=== PATIENT | male | born 1935 | race Caucasian/White ===

== ENCOUNTER → 2016-10-30 | Outpatient (CLI) | payer OTHER ==
[~2016-10-30] MED LIST: IOPAMIDOL (ISOVUE 370) 100 ML BTL IV ONE
== END ==
LOC: FIMAGING 14:08
PROVIDERS: ATTEND Psychiatry & Neurology Neurology
DX: R42 Dizziness and giddiness (principal); I25.10 Atherosclerotic heart disease of native coronary artery without angina pectoris; I77.1 Stricture of artery; M50.31 Other cervical disc degeneration, high cervical region; M43.12 Spondylolisthesis, cervical region; M48.02 Spinal stenosis, cervical region
CPT/HCPCS: 70498; Q9967

== ENCOUNTER 2018-11-29 17:14 | Observation (INO) | payer OTHER ==
[2018-11-29] MEDS ORDERED: NS 500 ML IV ONE (17:44)
--- NOTE | 2018-11-29 17:52 | EDPHY ---
H & P Time Seen by Provider: 11/29/18 17:25 HPI/ROS: CHIEF COMPLAINT: Dizziness, weakness, confusion HISTORY OF PRESENT ILLNESS: Patient is an 83-year-old male with a history of Parkinson's disease, hypertension atrial fibrillation who presents emergency department with increased dizziness and confusion. Patient's school bus inspector states that he has been losing weight over the past 6 months. Over the past few days he had decreased intake until today when he took a large amount of water. She states that this was atypical. He also seems more confused than normal. He has had increasing dizziness and difficulty walking. The patient had MOHS surgery last Wednesday. They noticed some redness around his ear and he was seen by the calculus tutor on Wednesday. He was not started on antibiotics. They were told that this was inflammation and he was given Advil. Patient's wound is not worsening. It remains unchanged. No fever. No chills. REVIEW OF SYSTEMS: 10 systems were reveiwed and are negative with the exception of the elements mentioned in the history of present illness. Past Medical/Surgical History: Includes Parkinson's disease, hypertension, atrial fibrillation, SVT, squamous cell carcinoma PSH: Hernia repair, MOHS Smoking Status: Never smoked Physical Exam: 36.4, 132/90, 58, 18, 97% on room air GENERAL: No acute distress, alert. HEENT: Eyes normal to inspection, normal pharynx, no signs of dehydration. Right ear wound it has surrounding redness. It appears to be granulating well. There is no significant erythema. NECK: Normal, supple. No neck redness RESPIRATORY: Clear to auscultation bilaterally, no rales, rhonchi or wheezing. CVS: Regular rate and rhythm, no rubs, murmurs, or gallops. ABDOMEN: Soft, nontender, nondistended, no organomegaly. BACK: Normal to inspection, no CVA tenderness. SKIN: Normal color, no rash, warm, dry. No pallor. EXTREMITIES: No pedal edema, no calf tenderness, no Homans sign or cords, no joint swelling. NEURO/PSYCH: Alert and oriented, flat affect, moves all extremities. No obvious cranial nerve deficit. Constitutional: Initial Vital Signs Temperature (C) 36.4 C 11/29/18 17:20 Heart Rate 58 L 11/29/18 17:20 Respiratory Rate 18 11/29/18 17:20 Blood Pressure 132/90 H 11/29/18 17:20 O2 Sat (%) 97 11/29/18 17:20 O2 Delivery Mode Room Air Allergies/Adverse Reactions: No Allergies [NKA] Allergy (Verified 11/29/18 17:18) Home Medications: Medication Instructions Recorded Ascorbic Acid [Vitamin C 500 mg 500 mg PO DAILY 04/09/15 (*)] Cholecalciferol Vit D3 [Vitamin D3 5,000 units PO HS 04/09/15 (*)] Herbals/Supplements -Info Only 1 ea PO DAILY 04/09/15 Lisinopril [Zestril 20 mg (*)] 20 mg PO DAILY 04/09/15 [place]-3 Fatty Acids [Fish Oil 1000 1,000 mg PO BID 04/09/15 mg (*)] Acetaminophen [Tylenol 325mg (*)] 325 - 650 mg PO Q4 PRN #0 tab 06/11/15 CARBIDOPA-LEVODOPA 10-100 TAB 11/29/18 Exelon 11/29/18 Medical Decision Making - Diagnostics Imaging Results: Imaging Impressions Chest X-Ray 11/29/18 17:44 Impression: Clear lungs. No acute process or significant change since November 2015. Head CT 11/29/18 19:03 Impression: 1. Negative. No acute intracranial hemorrhage or evidence of acute ischemia. 2. Atrophy and white matter disease similar to 2016. Findings discussed with Emergency Department physician, Suzanne Brenner M.D. , on November 29, 2018 at 1938. ED Course/Re-evaluation: In the emergency department I discussed possible etiologies with the patient. An IV was placed. Laboratory studies, EKG and chest x-ray were ordered. Patient given normal saline 5 mL IV. EKG from urgent care shows sinus rhythm at 53. Prolonged AK. Right bundle branch block CBC is unremarkable. Troponin negative. Chemistry and other labs are pending EKG: Sinus rhythm at 50. Prolonged AK. Right bundle branch block. Q-wave in V1. Chemistry panel is only remarkable for an elevated BUN. Coags are normal. UA is positive for red cells and white cells. Positive ketones I discussed the case with the patient's [id number], Jo-Ann Enriquez. I discussed the findings. I answered all her questions. Patient has concern about the patient being home. He does live at home alone. The patient will be admitted for further evaluation and treatment. He was given Rocephin 1 g IV for possible urinary tract infection. Urine cultures were sent. Differential Diagnosis: My differential includes but is not limited to electrolyte abnormality, sugar abnormality, CVA, Dissection, aneurysm, urinary tract infection, pneumonia, ACS , acute [place], dysrhythmia - Data Points Laboratory Results: Laboratory Results 11/29/18 18:03 11/29/18 18:03 11/29/18 11/29/18 11/29/18 19:30 18:03 18:03 WBC RBC Hgb Hct MCV MCH MCHC RDW Plt Count MPV Neut % (Auto) Lymph % (Auto) [place] % (Auto) Eos % (Auto) Baso % (Auto) Nucleat RBC Rel Count Absolute Neuts (auto) Absolute Lymphs (auto) Absolute Monos (auto) Absolute Eos (auto) Absolute Basos (auto) Absolute Nucleated RBC Immature Gran % Immature Gran # PT 13.2 SEC SEC (12.0-15.0) INR 1.04 (0.83-1.16) APTT 32.9 SEC SEC (23.0-38.0) Sodium 139 mEq/L mEq/L (135-145) Potassium 3.8 mEq/L mEq/L (3.5-5.2) Chloride 99 mEq/L mEq/L (97-110) Carbon Dioxide 29 mEq/l mEq/l (22-31) Anion Gap 11 mEq/L mEq/L (6-14) BUN 42 mg/dL H mg/dL (7-23) Creatinine 1.1 mg/dL mg/dL (0.7-1.3) Estimated GFR > 60 Glucose 92 mg/dL mg/dL (70-100) Calcium 9.9 mg/dL mg/dL (8.5-10.4) Urine Color ESTRELLITA Urine Appearance MODERATELY TURBID Urine pH 5.0 (5.0-7.5) Ur Specific [place] 1.023 (1.002-1.030) Urine Protein NEGATIVE (NEGATIVE) Urine Ketones 1+ H (NEGATIVE) Urine Blood NEGATIVE (NEGATIVE) Urine Nitrate NEGATIVE (NEGATIVE) Urine Bilirubin NEGATIVE (NEGATIVE) Urine Urobilinogen NEGATIVE EU EU (0.2-1.0) Ur Leukocyte Esterase NEGATIVE (NEGATIVE) Urine RBC 50-182 /hpf H /hpf (0-3) Urine WBC 10-15 /hpf H /hpf (0-3) Ur Epithelial Cells TRACE /lpf /lpf (NONE-1+) Calcium Oxalate Crystal PRESENT /hpf /hpf (NONE-1+) Hyaline Casts 1-5 /lpf /lpf (0-1) Urine Mucus 1+ /lpf /lpf (NONE-1+) Urine Glucose NEGATIVE (NEGATIVE) 11/29/18 18:03 WBC 5.35 10^3/uL 10^3/uL (3.80-9.50) RBC 4.46 10^6/uL 10^6/uL (4.40-6.38) Hgb 14.6 g/dL g/dL (13.7-17.5) Hct 42.2 % % (40.0-51.0) MCV 94.6 fL fL (81.5-99.8) MCH 32.7 pg pg (27.9-34.1) MCHC 34.6 g/dL g/dL (32.4-36.7) RDW 12.1 % % (11.5-15.2) Plt Count 177 10^3/uL 10^3/uL (150-400) MPV 10.4 fL fL (8.7-11.7) Neut % (Auto) 65.4 % % (39.3-74.2) Lymph % (Auto) 26.2 % % (15.0-45.0) [place] % (Auto) 5.4 % % (4.5-13.0) Eos % (Auto) 1.7 % % (0.6-7.6) Baso % (Auto) 0.9 % % (0.3-1.7) Nucleat RBC Rel Count 0.0 % % (0.0-0.2) Absolute Neuts (auto) 3.50 10^3/uL 10^3/uL (1.70-6.50) Absolute Lymphs (auto) 1.40 10^3/uL 10^3/uL (1.00-3.00) Absolute Monos (auto) 0.29 10^3/uL L 10^3/uL (0.30-0.80) Absolute Eos (auto) 0.09 10^3/uL 10^3/uL (0.03-0.40) Absolute Basos (auto) 0.05 10^3/uL 10^3/uL (0.02-0.10) Absolute Nucleated RBC 0.00 10^3/uL 10^3/uL (0-0.01) Immature Gran % 0.4 % % (0.0-1.1) Immature Gran # 0.02 10^3/uL 10^3/uL (0.00-0.10) PT INR APTT Sodium Potassium Chloride Carbon Dioxide Anion Gap BUN Creatinine Estimated GFR Glucose Calcium Urine Color Urine Appearance Urine pH Ur Specific [place] Urine Protein Urine Ketones Urine Blood Urine Nitrate Urine Bilirubin Urine Urobilinogen Ur Leukocyte Esterase Urine RBC Urine WBC Ur Epithelial Cells Calcium Oxalate Crystal Hyaline Casts Urine Mucus Urine Glucose Medications Given: Discontinued Medications Sodium Chloride (Ns) 500 mls @ 1,000 mls/hr IV EDNOW ONE PRN Reason: Protocol Stop: 11/29/18 18:13 Last Admin: 11/29/18 18:29 Dose: 500 mls Departure - Departure Disposition: [facility] Clinical Impression: Dizziness, Weakness, Parkinsons disease Urinary tract infection Qualifiers: Urinary tract infection type: acute cystitis Hematuria presence: with hematuria Qualified Code(s): N30.01 - Acute cystitis with hematuria Condition: Good Referrals: Niesha Logan MD [Primary Care Provider] - As per Instructions
[2018-11-29 18:16] LABS: PLATELET COUNT 177 10^3/uL (150-400)
[2018-11-29 18:26] LABS: INR 1.04 (0.83-1.16); PROTIME(PATIENT) 13.2 SEC (12.0-15.0)
[2018-11-29] MEDS ORDERED: ACETAMINOPHEN 325 MG TAB PO PRN (21:01)
[2018-11-29] MEDS ORDERED: ONDANSETRON DISINTEGRATING 4 MG TAB PO PRN (21:01)
[2018-11-29] MEDS ORDERED: ONDANSETRON 4 MG/2 ML VIAL IVP PRN (21:01)
[2018-11-29] MEDS ORDERED: RIVASTIGMINE TARTRATE 1.5 MG CAP PO ONE (21:15)
[2018-11-29] MEDS ORDERED: CARBIDOPA/LEVODOPA 25 MG/100 MG TAB PO ONE (21:15)
--- NOTE | 2018-11-29 21:33 | PDGENHP ---
History and Physical - Chief Complaint dizziness, confusion - History of Present Illness 83yo M with Parkinson's, dementia, atrial tachycardia s/p ablation, MV repair with mild-moderate MS presents with 1 day of dizziness and confusion. He is a poor historian and not able to provide much history. His colorman, Tierney, is at bedside. She reports he has been having decreased PO intake over the last week. Today he was complaining of lots of dizziness in the morning. He did not pass out. He doesn't think it was a room spinning sensation. It does seem to be positional. She also felt that he was confused and complaining of being very thirsty today. He has not had any recent changes in medications. Denies recent fevers, chills, nausea/vomiting, diarrhea, or urinary symptoms. No palpitations or chest pain. In the ED, he had rather unremarkable vitals and labs. A UA was positive for some WBCs and RBCs. He was given a dose of IV ceftriaxone and 500ml of normal saline. It was felt that he was unsafe to go home as he lives alone. The ED provider discussed the case with his daughter who is his MDPOA. History Information - Allergies/Home Medication List Allergies/Adverse Reactions: No Allergies [NKA] Allergy (Verified 11/29/18 17:18) Home Medications: Ascorbic Acid [Vitamin C 500 mg (*)] 500 mg PO DAILY 04/09/15 [Last Taken ] Cholecalciferol Vit D3 [Vitamin D3 (*)] 2,000 units PO DAILY 04/09/15 [Last Taken 11/29/18] Herbals/Supplements -Info Only 1 ea PO DAILY 04/09/15 [Last Taken Unknown] Lisinopril [Zestril 20 mg (*)] 20 mg PO DAILY 04/09/15 [Last Taken 11/29/18] [place]-3 Fatty Acids [Fish Oil 1000 mg (*)] 1,000 mg PO DAILY 04/09/15 [Last Taken 11/29/18] Carbidopa/Levodopa [Carbidopa-Levodopa 25-100 Tab] 1 each PO TID@09,12,18 [Last Taken 11/29/18 12:00] Ibuprofen 200 mg PO Q8H 11/29/18 [Last Taken 11/29/18] Rivastigmine Tartrate [Rivastigmine] 3 mg PO BID 11/29/18 [Last Taken 11/29/18] Triamcinolone 0.1% [Triamcinolone 0.1% Cream (*)] 1 tessa TP DAILY 11/29/18 [Last Taken 11/28/18] I have personally reviewed and updated: family history, medical history, social history, surgical history - Past Medical History Additional medical history: Parkinson's disease with underlying dementia, hypertension, MV repair, mild-moderate MS, atrial tachycardia s/p ablation, chronic dysequilibrium - Surgical History Additional surgical history: MV repair - Family History Positive for: non-pertinent - Social History Smoking Status: Never smoked Alcohol Use: None Drug Use: None Additional social history: Lives alone. Caretake, Tierney, checks in on him daily. Goes to outpatient PT. No longer drives, needs help with iADLs. Ambulates on own. Review of Systems Review of Systems: ROS: 10pt was reviewed & negative except for what was stated in HPI & below Physical Exam Physical Exam: Temp Pulse Resp BP Pulse Ox 36.4 C 61 17 138/88 H 98 11/29/18 17:20 11/29/18 20:11 11/29/18 20:11 11/29/18 20:11 11/29/18 20:11 Constitutional: no apparent distress Eyes: PERRL, anicteric sclera Ears, Nose, Mouth, Throat: no oral mucosal ulcers, dry mucous membranes Cardiovascular: regular rate and rhythym, systolic murmur, No JVD, No edema Respiratory: no respiratory distress, no rales or rhonchi, clear to auscultation Gastrointestinal: normoactive bowel sounds, soft, non-tender abdomen, no palpable masses Genitourinary: no bladder fullness, no bladder tenderness Skin: warm, normal color, no rashes or abrasions, no fluctuance, no induration, No mottled Musculoskeletal: generalized weakness Neurologic: CN II-XII Intact, other (alert, not fully oriented) Psychiatric: encephalopathic Lab Data & Imaging Review 11/29/18 18:03 11/29/18 18:03 WBC 5.35 10^3/uL (3.80-9.50) 11/29/18 18:03 RBC 4.46 10^6/uL (4.40-6.38) 11/29/18 18:03 Hgb 14.6 g/dL (13.7-17.5) 11/29/18 18:03 Hct 42.2 % (40.0-51.0) 11/29/18 18:03 MCV 94.6 fL (81.5-99.8) 11/29/18 18:03 MCH 32.7 pg (27.9-34.1) 11/29/18 18:03 MCHC 34.6 g/dL (32.4-36.7) 11/29/18 18:03 RDW 12.1 % (11.5-15.2) 11/29/18 18:03 Plt Count 177 10^3/uL (150-400) 11/29/18 18:03 MPV 10.4 fL (8.7-11.7) 11/29/18 18:03 Neut % (Auto) 65.4 % (39.3-74.2) 11/29/18 18:03 Lymph % (Auto) 26.2 % (15.0-45.0) 11/29/18 18:03 [place] % (Auto) 5.4 % (4.5-13.0) 11/29/18 18:03 Eos % (Auto) 1.7 % (0.6-7.6) 11/29/18 18:03 Baso % (Auto) 0.9 % (0.3-1.7) 11/29/18 18:03 Nucleat RBC Rel Count 0.0 % (0.0-0.2) 11/29/18 18:03 Absolute Neuts (auto) 3.50 10^3/uL (1.70-6.50) 11/29/18 18:03 Absolute Lymphs (auto) 1.40 10^3/uL (1.00-3.00) 11/29/18 18:03 Absolute Monos (auto) 0.29 10^3/uL (0.30-0.80) L 11/29/18 18:03 Absolute Eos (auto) 0.09 10^3/uL (0.03-0.40) 11/29/18 18:03 Absolute Basos (auto) 0.05 10^3/uL (0.02-0.10) 11/29/18 18:03 Absolute Nucleated RBC 0.00 10^3/uL (0-0.01) 11/29/18 18:03 Immature Gran % 0.4 % (0.0-1.1) 11/29/18 18:03 Immature Gran # 0.02 10^3/uL (0.00-0.10) 11/29/18 18:03 PT 13.2 SEC (12.0-15.0) 11/29/18 18:03 INR 1.04 (0.83-1.16) 11/29/18 18:03 APTT 32.9 SEC (23.0-38.0) 11/29/18 18:03 Sodium 139 mEq/L (135-145) 11/29/18 18:03 Potassium 3.8 mEq/L (3.5-5.2) 11/29/18 18:03 Chloride 99 mEq/L (97-110) 11/29/18 18:03 Carbon Dioxide 29 mEq/l (22-31) 11/29/18 18:03 Anion Gap 11 mEq/L (6-14) 11/29/18 18:03 BUN 42 mg/dL (7-23) H 11/29/18 18:03 Creatinine 1.1 mg/dL (0.7-1.3) 11/29/18 18:03 Estimated GFR > 60 11/29/18 18:03 Glucose 92 mg/dL (70-100) 11/29/18 18:03 Calcium 9.9 mg/dL (8.5-10.4) 11/29/18 18:03 Urine Color ESTRELLITA 11/29/18 19: Urine Appearance MODERATELY TURBID 11/29/18 19:30 Urine pH 5.0 (5.0-7.5) 11/29/18 19:30 Ur Specific [place] 1.023 (1.002-1.030) 11/29/18 19:30 Urine Protein NEGATIVE (NEGATIVE) 11/29/18 19: Urine Ketones 1+ (NEGATIVE) H 11/29/18 19:30 Urine Blood NEGATIVE (NEGATIVE) 11/29/18 19:30 Urine Nitrate NEGATIVE (NEGATIVE) 11/29/18 19: Urine Bilirubin NEGATIVE (NEGATIVE) 11/29/18 19: Urine Urobilinogen NEGATIVE EU (0.2-1.0) 03/19/19 19:30 Ur Leukocyte Esterase NEGATIVE (NEGATIVE) 11/29/18 19:30 Urine RBC 50-182 /hpf (0-3) H 11/29/18 19:30 Urine WBC 10-15 /hpf (0-3) H 11/29/18 19:30 Ur Epithelial Cells TRACE /lpf (NONE-1+) 11/29/18 19:30 Calcium Oxalate Crystal PRESENT /hpf (NONE-1+) 11/29/18 19:30 Hyaline Casts 1-5 /lpf (0-1) 11/29/18 19:30 Urine Mucus 1+ /lpf (NONE-1+) 11/29/18 19:30 Urine Glucose NEGATIVE (NEGATIVE) 11/29/18 19:30 Interpretation: CXR: clear lungs without infiltrate or effusion, normal heart size, no heart failure, prior sternotomy and MV ring in place EKG additional interpertation: ECG: sinus logan with 1st degree AV block, RBBB, early R wave progression, no acute ST-T segment ischemic changes (interp by ri) Assessment & Plan Assessment: 83yo M with Parkinson's, dementia, atrial tachycardia s/p ablation, MV repair with mild MS presents with 1 day of dizziness and confusion. Plan: #Dizziness: Per chart review, he seems to have chronic dysequilibrium consistent with the symptoms he's having. I suspect he is dehydrated which may have exacerbated this. He does have a history of atrial arrhythmias so will monitor for this. - IVF, check orthostatics - Telemetry and will check a troponin - PT/OT evaluation #Acute metabolic encephalopathy: Not at baseline per colorman. Suspect due to dehydration. Manage as above. He is at risk for delirium. #Microscopic hematuria: He has no symptoms of UTI and UA isn't remarkable for this. He received IV antibiotics in the ED - Hold on additional antibiotics, follow up urine culture - He should have a repeat UA as an outpatient #H/o MV annuloplasty ring, mild MS: Last echo in 2016. Will hold off on repeating as low clinical concern for valvular heart disease causing his symptoms. #Parkinson's disease with underlying dementia - Continue home meds - He is followed by outpatient palliative care #Hypertension: Home meds. VTE ppx: LMWH Code: DNR/DNI Diet: regular Dispo: Admit under observation
[2018-11-29] MEDS ORDERED: NS 1,000 ML IV SCH (22:00)
--- NOTE | 2018-11-29 22:47 | CPEKG ---
Test Reason : OPEN Blood Pressure : / mmHG Vent. Rate : 050 BPM Atrial Rate : 000 BPM P-R Int : 248 ms QRS Dur : 165 ms QT Int : 495 ms P-R-T Axes : -66 -34 062 degrees QTc Int : 452 ms Sinus or ectopic atrial rhythm Prolonged ND interval Right bundle branch block Anteroseptal infarct, age indeterminate Confirmed by Suzanne Brenner ([id number]) on 11/29/2018 10:47:28 PM Referred By: Suzanne Brenner Confirmed By:Suzanne Brenner
[2018-11-30] MEDS: CARBIDOPA/LEVODOPA 25 MG/100 MG TAB PO SCH ×2 (08:38→12:07)
[2018-11-30] MEDS ORDERED: TRIAMCINOLONE 0.1% 15 GM CRTUBE TP SCH (09:00)
[2018-11-30] MEDS ORDERED: ENOXAPARIN 40 MG/0.4 ML SYR SC SCH (09:00)
[2018-11-30] MEDS ORDERED: LISINOPRIL 20 MG TAB PO SCH (09:00)
[2018-11-30] MEDS ORDERED: RIVASTIGMINE TARTRATE 1.5 MG CAP PO SCH (09:00)
[2018-11-30 11:10] VITALS: BP 126/76
--- NOTE | 2018-11-30 13:15 | PDIAF ---
- Diagnosis Diagnosis: Dehydration Code Status: Do Not Resuscitate - Medication Management Discharge Medications: electronically signed and located in the Home Medication List. - Orders Services needed: Home Care, Registered Nurse Home Care Face to Face: I certify that this patient was under my care and that I had the required iwxi-[id number] encounter meeting the encounter requirements on the discharge day. My findings support the fact that the patient is homebound as defined in Home Care Face to Face Continued: CMS Chapter 7 Medicare Benefits Manual 30.1.1 , The condition of the patient is such that there exists a normal inability to leave home and consequently, leaving home would require a considerable and taxing effort. Isolation Type: None - Follow Up Care Current Providers and Referrals: Niesha Logan MD [Primary Care Provider] - As per Instructions
--- NOTE | 2018-11-30 14:07 | PDDCSUM ---
Discharge Summary Discharge Summary: Date of Admission: 11/29/2018 Date of Discharge: 11/30/2018 Consults: N/A Procedures: CT Head Followup: PCP, Neurologist Hospital Course Problem List: 83yo M with Parkinson's, dementia, atrial tachycardia s/p ablation, MV repair with mild MS presents with 1 day of dizziness and confusion. #Dizziness: Per chart review, he seems to have chronic dysequilibrium consistent with the symptoms he's having. I suspect he is dehydrated which may have exacerbated this. He does have a history of atrial arrhythmias so will monitor for this. - Orthostatics positive on admission, s/p IVF - Telemetry and Troponin negative - PT/OT evaluation recommending home care #Acute metabolic encephalopathy: Suspect due to dehydration. Manage as above. He is at risk for delirium. #Microscopic hematuria: He has no symptoms of UTI and UA isn't remarkable for this. He received IV antibiotics in the ED - Held on additional antibiotics, follow up urine culture - He should have a repeat UA as an outpatient #H/o MV annuloplasty ring, mild MS: Last echo in 2015. Will hold off on repeating as low clinical concern for valvular heart disease causing his symptoms. #Parkinson's disease with underlying dementia - Continue home meds - He is followed by outpatient palliative care #Hypertension: Home meds. #S/p Recent MOHS Procedure - Site does not appear grossly infected - Wound care as in patient, home care ordered for OP Time spent on discharge was >35 minutes with >50% of time spent on patient education and counseling.
--- NOTE | 2018-11-30 14:48 | WOCRNPDOC ---
WOCRN Advanced Assessment Note - Skin Integrity Problem, Advanced Assess Right Ear Dressing Type: Open to Air Sue Wound Tissue: Erythema Wound Bed Color: Black, Yellow Wound Bed Constitution: Adhered Slough (mixed with glue 70%), Unstable Eschar ( 30% ) Wound Edges: Attached Site Odor: None Site Measurement - Head-to-Toe Length X Width X Depth (cm): 2x3.9x0.3 Skin Integrity Problem Comment: Patient with hx of MOHS procedure on R ear a week ago. WC called for consult for erythema, warmth and purulent drainage to area. Wound in the navicular fossa of the right ear. NS moistened gauze applied to R ear to soften dried exudate. Cotton tipped applicator moistened and used to clean exudate in periwound ear space and assess wound bed. Wound bed appears to be a mixture of slough, eschar and glue. Discussed with patient and family present. Recommended pt follow up with dermatology. All questions answered. NGUYEN Herring notified of findings. Muna FLOYD in room. Wound care will sign off.
--- NOTE | 2018-11-30 14:55 | ASMTLACE ---
LACE Length of stay for Answers: Less than 1 day current admission Acuity / Level of Answers: No Care: Did the patient have an inpatient admission? Comorbidities - select Answers: Dementia all that apply Other Notes: Parkinson's disease; HTN; AFib # of Emergency department Answers: 1-2 visits in the last 6 months Score: 5 Date Signed: 11/30/2018 02:54 PM Electronically Signed By:OMAYRA Chow
--- NOTE | 2018-11-30 15:56 | ASMTDCNOTE ---
Case Management Discharge Discharge Order Complete? Answers: Yes Patient to Obtain Answers: Other Notes: Caregiver Medications Transportation Arranged Answers: Other Notes: Caregiver Family Notified Answers: Yes Discharge Comments Notes: Pt was admitted with possible UTI and weakness. He is being discharged home today with his caregiver Tierney and corn lab technician. Spoke with pt's daughter Jo-Ann ([facility]) [phone] who is in agreement with and had no preference for agency. Pt lives in [place] at [address] [address]. Referrals sent to [facility] and [facility] via [employer] with pt's [place] address and request to contact Jo-Ann to arrange appts. [facility] called to confirm acceptance and will contact pt's daughter. Date Signed: 11/30/2018 03:56 PM Electronically Signed By:OMAYRA Chow
--- NOTE | 2018-11-30 15:57 | ASDISCHSUM ---
Discharge Information Plan Status:Home with Home Health Medically Cleared to Leave:11/30/2018 Discharge Date:11/30/2018 03:00 PM D/C Disposition:Home Health Service [facility] D/C Disposition:Home, Routine, Self-Care Projected Discharge Date:11/30/2018 11:00 AM Transportation at D/C:Other Discharge Delay Reason: Follow-Up Date:11/30/2018 11:00 AM Discharge Slot: Final Diagnosis: Placement Information Referral Type:*Home Health Care Services Referral ID:[id number] Provider Name:[facility] [place] Address [address] Address 2: City:[place] Selection Factors: State:[place] Patient Contact Information Contact Name:SALVADOR Relationship:Daughter Address: Work Phone: City: [facility] Phone: [facility] Code: Email: Financial Information Financial Class:Medicare Primary Plan Desc:MEDICARE OUTPATIENT Primary Plan Number:[id number] Secondary Plan Desc:[place] Secondary Plan Number:[id number] Assessment Information LACE LACE Length of stay for Answers: Less than 1 day current admission Acuity / Level of Answers: No Care: Did the patient have an inpatient admission? Comorbidities - select Answers: Dementia all that apply Other Notes: Parkinson's disease; HTN; AFib # of Emergency department Answers: 1-2 visits in the last 6 months Score: 5 Date Signed: 11/30/2018 02:54 PM Electronically Signed By:OMAYRA Chow Case Management Discharge Plan Note Case Management Discharge Discharge Order Complete? Answers: Yes Patient to Obtain Answers: Other Notes: Caregiver Medications Transportation Arranged Answers: Other Notes: Caregiver Family Notified Answers: Yes Discharge Comments Notes: Pt was admitted with possible UTI and weakness. He is being discharged home today with his caregiver Tierney and chair springer. Spoke with pt's daughter Jo-Ann ([facility]) [phone] who is in agreement with and had no preference for agency. Pt lives in [place] at [address] [address]. Referrals sent to [facility] and [facility] via [employer] with pt's [place] address and request to contact Jo-Ann to arrange appts. [facility] called to confirm acceptance and will contact pt's daughter. Date Signed: 11/30/2018 03:56 PM Electronically Signed By:OMAYRA Chow Intervention Information Intervention Type:*KASSIDY-Signed Date of Service:11/30/2018 12:31 PM Patient Type:Observation Staff Member:Keyla Dong Hours: Discipline: Severity: Comment:
== END 2018-11-30 15:00 | disposition home health service (06) ==
LOC: F1N 21:44
PROVIDERS: ADMIT Internal Medicine; ATTEND Internal Medicine
DX: E86.0 Dehydration (principal); R42 Dizziness and giddiness; G93.41 Metabolic encephalopathy; R31.21 Asymptomatic microscopic hematuria; G20 Parkinson's disease; F05 Delirium due to known physiological condition; I10 Essential (primary) hypertension; Z85.828 Personal history of other malignant neoplasm of skin
CPT/HCPCS: 70450; 71046; 93005; 96361; 96365; 96372; 97161; 97166; 99285; G0378; J0696; J1650